=== PATIENT | female | born 1990 | race Caucasian/White ===

== ENCOUNTER 2020-01-03 09:20 | Emergency (ER) | payer OTHER ==
[2020-01-03 09:26] VITALS: BP 123/77; PULSE 74; TEMP 98.2; BMI 31.3
--- NOTE | 2020-01-03 09:48 | PDOC ---
History of Present Illness - General Chief Complaint: Injury Stated Complaint: LEFT FOOT PAIN Time Seen by Provider: 01/03/20 09:41 History Source: Patient Exam Limitations: Clinical Condition - History of Present Illness Initial Comments: 01/03/20 09:53 Patient with no significant past medical history present with complaint of redness and pain to toenail of left little toe status post repeat nailbed to nail which was hanging 5 days ago and now having pain and redness to the toe. Denies any fever, chills, malaise. Patient report increased pain to left little toe radiating to the lateral side of the left foot up the leg with ambulation. Denies any redness or streaking up the leg. Patient has not taken anything for symptoms Is this a multiple visit Asthma Patient?: No Timing/Duration: other (4 days) Past History - Medical History Allergies/Adverse Reactions: Allergies Allergy/AdvReac Type Severity Reaction Status Date / Time ampicillin sodium Allergy Verified 01/03/20 09:22 [From Unasyn] naproxen sodium [From Aleve] Allergy Hives Verified 01/03/20 09:22 piperacillin sodium Allergy Verified 01/03/20 09:22 [From Zosyn] sulbactam sodium Allergy Verified 01/03/20 09:22 [From Unasyn] tazobactam sodium Allergy Verified 01/03/20 09:22 [From Zosyn] Home Medications: Ambulatory Orders Ondansetron HCl [Zofran] 4 mg PO Q8H #12 tablet 07/27/15 Sulfamethoxazole/Trimethoprim [Bactrim Ds -] 1 tab PO BID #14 tablet 01/03/20 Asthma: No Cancer: No Cardiac Disorders: No COPD: No Diabetes: No HTN: No Seizures: No Thyroid Disease: No - Surgical History Appendectomy: Yes - Reproductive History Is Patient Now?: No Cervical CA: No Dysfunctional Uterine Bleeding: No Ectopic : No Endometrial CA: No Polycystic Ovaries: No Tubal Ligation: No - Immunization History Immunization Up to Date: Yes - Psycho-Social/Smoking History Smoking History: Never smoked Have you smoked in the past 12 months: No - Substance Abuse Hx (Audit-C & DAST Scrn) How often the patient has a drink containing alcohol: Monthly or less Number of drinks the patient has on a typical day: 1 or 2 How often the patient has six or more drinks on one occasion: Never Score: In Men: 4 or > Positive; In Women: 3 or > Positive: 1 Screen Result (Pos requires Nsg. Audit-10AR): Negative In the last yr the pt used illegal drug/Rx for NonMed reason: No Score: Yes response is considered Positive: 0 Screen Result (Positive result requires Nsg. DAST-10): Negative Review of Systems - Review of Systems Able to Perform ROS?: Yes Is the patient limited Upper Sorbian proficient: No Constitutional: No: Chills, Fever, Malaise HEENTM: No: Symptoms Reported Respiratory: No: Symptoms reported, See HPI, Cough, Orthopnea, Shortness of Breath, SOB with Exertion, SOB at Rest, Stridor, Wheezing, Productive cough, Hemoptysis, Other Cardiac (ROS): No: Symptoms Reported, See HPI, Chest Pain, Edema, Irregular Heart Rate, Lightheadedness, Palpitations, Syncope, Chest Tightness, Other ABD/GI: No: Symptoms Reported, Nausea, Vomiting Musculoskeletal: Yes: Symptoms Reported, See HPI, Muscle Pain (left little toe pain) Integumentary: Yes: Symptoms Reported, See HPI, Erythema (left little toe) Neurological: No: Symptoms reported All Other Systems: Reviewed and Negative *Physical Exam - Vital Signs Last Vital Signs Temp Pulse Resp BP Pulse Ox 98.2 F 74 18 123/77 100 01/03/20 09:23 01/03/20 09:23 01/03/20 09:23 01/03/20 09:23 01/03/20 09:23 - Physical Exam 01/03/20 09:55 GENERAL: Well developed, well nourished. Awake and alert. No acute distress. PULMONARY: No evidence of respiratory distress. MUSCULOSKELETAL : moderate erythema to nailbed of left little toe with mild tenderness to nailbed of left little toe. No toenail avulsion. No tenderness to rest of the foot or leg. No skin erythema to rest of foot or up the leg. No streaking erythema up the foot SKIN: Warm and dry. Normal capillary refill. Moderate erythema to nailbed of left little toe NEUROLOGICAL: Alert, awake, appropriate. No motor deficits in the lower extremities. Gait is normal without ataxia. PSYCHIATRIC: Cooperative. Good eye contact. Appropriate mood and affect. General Appearance: Yes: Nourished, Appropriately Dressed. No: Apparent Distress Medical Decision Making - Medical Decision Making 01/03/20 09:54 Patient with no significant past medical history present with complaint of redness and pain to toenail of left little toe status post repeat nailbed to nail which was hanging 5 days ago and now having pain and redness to the toe. Denies any fever, chills, malaise. Patient report increased pain to left little toe radiating to the lateral side of the left foot up the leg with ambulation. Denies any redness or streaking up the leg. Patient has not taken anything for symptoms Exam significant for moderate erythema to nailbed of left little toe with mild tenderness to nailbed of left little toe. No toenail avulsion. No tenderness to rest of the foot or leg. No skin erythema to rest of foot or up the leg. No streaking erythema up the foot Patient symptoms likely paronychia and stable for discharge on Bactrim antibiotics due to penicillin allergies and Motrin as needed for pain due to NSAID allergies with podiatry follow-up. 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 Take prescribed antibiotics and finish it. Take Tylenol as needed for pain due to naproxen al lergy. Soak foot in Epsom salt warm water as needed for swelling. Follow-up referred replanting machine operator - Post Discharge Activity Work/Back to School Note: Back to Work
--- OUTSIDE RECORDS SUMMARY | 2020-01-03 10:03 | XMS ---
:1990 Author Organization [facility] Support Name Relationship Address Phone UE Unavailable Unavailable Unavailable PAUL MALIN MOTHER [address] [phone] [place] [address] PAUL MALIN Unavailable [address] [place] [address] Re-disclosure Warning The records that you are about to access may contain information from federally- assisted alcohol or drug abuse programs. If such information is present, then the following federally mandated warning applies: This information has been disclosed to you from records protected by federal confidentiality rules (42 CFR part 2). The federal rules prohibit you from making any further disclosure of this information unless further disclosure is expressly permitted by the written consent of the person to whom it pertains or as otherwise permitted by 42 CFR part 2. A general authorization for the release of medical or other information is NOT sufficient for this purpose. The Federal rules restrict any use of the information to criminally investigate or prosecute any alcohol or drug abuse patient.The records that you are about to access may contain highly sensitive health information, the redisclosure of which is protected by Article 27-F of the [facility] Public Health law. If you continue you may haveaccess to information: Regarding HIV / AIDS; Provided by facilities licensed or operated by the [facility] Office of Mental Health; or Provided by the [facility] Office for People With Developmental Disabilities. If such information is present, then the following [facility] mandated warning applies: This information has been disclosed to you from confidential records which are protected by state law. State law prohibits you from making any further disclosure of this information without the specific written consent of the person to whom it pertains, or as otherwise permitted by law. Any unauthorized further disclosure in violation of state law may result in a fine or residential sentence or both. A general authorization for the release of medical or other information is NOT sufficient authorization for further disclosure. Allergies and Adverse Reactions Type Description Substance Reaction Status Data Source(s ) Drug allergy Unasyn Ampicillin / Sulbactam rash Active eCW3 ([facility]) Drug allergy Zosyn Piperacillin / hives Active eCW3 ([facility]) Drug allergy Aleve Naproxen hives Active eCW3 ([facility]) Drug allergy Unasyn Ampicillin / Sulbactam rash Active eCW3 ([facility]) Drug allergy Zosyn Piperacillin / hives Active eCW3 ([facility]) Encounters Encounter Providers Location Date Indications Data Source(s ) Outpatient [facility] 10/18/2018 eCW3 ([facility] A28 12:00:00 AM Health Care) EDT - 10/18/2018 12:00:[address] [facility] 07/03/2018 eCW3 ([facility] A28 12:00:00 AM Health Care) EDT - 07/03/2018 12:00:00 AM EDT Medications Medication Brand Start Product Dose Route Administrative Pharmacy [facility] Indications Reaction Description Data Name Date Form Instructions Instructions Source(s) Ketotifen Ketoti .0 active Ketotifen eCW3 0.25 MG/ML fen 2019 {drop Fumarate ([facility] Ophthalmic Fumara 12:00: _into 0.025 % R iver Solution te 00 AM _affe [facility] Ketotifen 0.025 EST cted_ Care) Fumarate % eye} 0.025 % 12 HR Cetiri .0 active Cetirizine-P eCW3 cetirizine zine-P 2019 {tabl seudoephedr i ([place] hydrochlori seudoe 12:00: et_as ne ER 5- 120 [place] de 5 MG / phedri 00 AM _need MG Health Pseudoephed ne ER EST ed} Care) rine 5-120 Hydrochlori MG de 120 MG Extended Release Oral Tablet Cetirizine- Pseudoephed rine ER 5-120 MG Azelastine Azelas 02/16/ end Azelast ine eCW3 HCl 0.15 % abdiel 2018 ed HCl 0.15 % ( dson HCl 12:00: [place] 0.15 % 00 AM Health EST Care) Azelastine Azelas 1.0 suspend Azelast ine eCW3 HCl 0.1 % abdiel 2019 {puff ed HCl 0.1 % ([place] HCl 12:00: _in_e [place] 0.1 % 00 AM ach_n Health EST ostri Care) l} Azithromyci Azithr 07/03/ 2.0 suspend Azithr omycin eCW3 n 500 MG omycin 2019 {tabl ed 500 MG ([place] 500 MG 12:00: et} [place] 00 AM Health EDT Care) Azithromyci Azithr 07/03/ 2.0 suspend Azithr omycin eCW3 n 500 MG omycin 2019 {tabl ed 500 MG ([place] Oral Tablet 500 MG 12:00: et} [place] r 00 AM Health EDT Care) Ceftriaxone Ceftri 07/03/ active Ceftria xone eCW3 250 MG axone 2018 Sodium 250 ([place] Injection Sodium 12:00: MG [place] Ceftriaxone 250 MG 00 AM Healt h Sodium 250 EDT Care) MG Prenat 11/07/ suspend eCW3 Vitamins al 2015 ed Vitamins ([place] 28-0.8 MG Vitami 12:00: 28-0.8 MG R iver ns 00 AM Health 28-0.8 EDT Care) MG Prenat 11/07/ suspend eCW3 Vitamins al 2015 ed Vitamins ([place] 28-0.8 MG Vitami 12:00: 28-0.8 MG R iver ns 00 AM Health 28-0.8 EDT Care) MG UNK 08/09/ suspend eC W3 Vitamins 2015 ed Vitamins ([place] 12:00: [place] 00 AM Health EDT Care) UNK 08/09/ suspend eC W3 Vitamins 2015 ed Vitamins ([place] 12:00: [place] 00 AM Health EDT Care) Ibuprofen Ibupro 1.0 active Ibuprofen e CW3 800 MG Oral fen {tabl 800 MG ([place] Tablet 800 MG et} [facility]) Levonorgest Mirena active Mirena (5 2 eCW3 rel (52 MG) 20 ([place] 0.391297 MG) 20 MCG/24HR [place] MG/HR Drug MCG/24 Health Implant HR Care) [Mirena] Mirena (52 MG) 20 MCG/24HR Levonorgest Mirena active Mirena (5 2 eCW3 rel (52 MG) 20 ([place] 0.638464 MG) 20 MCG/24HR [place] MG/HR Drug MCG/24 Health Implant HR Care) [Mirena] Mirena (52 MG) 20 MCG/24HR Ibuprofen Ibupro 1.0 suspend Ibuprofen eCW3 800 MG Oral fen {tabl ed 800 MG ([place] Tablet 800 MG et} [facility]) Clindamycin Clinda 1.0 suspend Clindamy brian eCW3 300 MG Oral mycin {caps ed HCl 300 MG ([place] Capsule HCl ule} [place] Clindamycin 300 MG Health HCl 300 MG Care) Clindamycin Clinda 1.0 suspend Clindamy brian eCW3 300 MG Oral mycin {caps ed HCl 300 MG ([place] Capsule HCl ule} [place] Clindamycin 300 MG Health HCl 300 MG Care) Insurance Providers Payer name Policy type Policy ID Covered Covered libertarian's Policy P rosalind / Coverage libertarian ID relationship to [place] Inf ormation type [place] P MEDICAID [id number] O Problems, Conditions, and Diagnoses Code Display Name Description Problem Type Effective Dates Data Source(s) J30.9 Allergic rhinitis, Allergic rhinitis, Problem 0 eCW3 ([place] unspecified unspecified 12:00:00 AM [facility]) N92.0 Spotting Spotting Problem 10/18/2018 eCW3 ([place] 12:00:00 AM [facility]) N92.0 Spotting Spotting Problem 10/18/2018 eCW3 ([place] 12:00:00 AM [facility]) Z97.5 IUD (intrauterine IUD (intrauterine Problem 07/03/2018 eCW3 ([place] device) in place device) in place 12:00:00 AM E [facility]) Z97.5 IUD (intrauterine IUD (intrauterine Problem 07/03/2018 eCW3 ([place] device) in place device) in place 12:00:00 AM E [facility]) E66.3 Overweight Overweight Problem 02/13/2018 eCW3 ([place] 12:00:00 AM [facility]) Surgeries/Procedures Procedure Description Date Indications Data Source(s) Administration of 07/03/2018 eCW3 ([facility] on [place] Medication 12:00:00 AM [facility]) Social History Code Duration Value Status Description Data Source(s ) Smoking 05/09/2019 Former Smoker completed Former Smoker eCW3 ( dson 12:00:00 AM [facility]) Smoking 2018 Former Smoker completed Former Smoker eCW3 ([place] 12:00:00 AM [facility]) Former Smoker completed Former Smoker eCW3 ([facility]) Smoking Unknown if ever completed Unknown if ever [facility]olfo [facility] Former Smoker completed Former Smoker eCW3 ([facility]) Vital Signs ID Date Data Source UNK Name Value Range Interpretation Code Description Data Source(s) Diastolic blood 87 mm[Hg] 87 mm[Hg] eCW3 ([facility]) Systolic blood 120 mm[Hg] 120 mm[Hg] eCW3 ([facility]) Body temperature 98.1 [degF] 98.1 [degF] eCW3 ( [facility]) Heart rate 20 /min 20 /min eCW3 ([facility]) Body mass index 31.50 kg/m2 31.50 kg/m2 eCW3 ([place] (BMI) [Ratio] [facility]) Body weight 156 [lb_av] 156 [lb_av] eCW3 ([facility]) Body height 59 [in_i] 59 [in_i] eCW3 ([facility]) Diastolic blood 87 mm[Hg] 87 mm[Hg] eCW3 ([facility]) Systolic blood 125 mm[Hg] 125 mm[Hg] eCW3 ([facility]) Body temperature 97.8 [degF] 97.8 [degF] eCW3 ( [facility]) Body mass index 28.68 kg/m2 28.68 kg/m2 eCW3 ([place] (BMI) [Ratio] [facility]) Body weight 142 [lb_av] 142 [lb_av] eCW3 ([facility]) Body height 59 [in_i] 59 [in_i] eCW3 ([facility]) Patient Treatment Plan of Care Planned Activity Planned Date Details Description Data Source (s) Ketotifen 0.25 MG/ML 05/04/2019 eCW3 ([place] Ophthalmic Solution 12:00:00 AM [facility]) 12 HR cetirizine 05/04/2019 eCW3 ([facility] hydrochloride 5 MG / 12:00:00 AM [facility]) Pseudoephedrine Hydrochloride 120 MG Extended Release Oral Tablet
== END 2020-01-03 09:53 | disposition home or self-care (01) ==
LOC: JER 09:20
DX: L03.032 Cellulitis of left toe (principal)
CPT/HCPCS: 99282-25

== ENCOUNTER 2020-01-04 15:10 | Emergency (ER) | payer OTHER ==
[2020-01-04 15:29] VITALS: BP 129/85; PULSE 68; TEMP 98.2; BMI 33.6
--- NOTE | 2020-01-04 15:56 | PDOC ---
History of Present Illness - General Chief Complaint: Wound Stated Complaint: LT FOOT FINGER INFECTION Time Seen by Provider: 01/04/20 15:31 History Source: Patient Exam Limitations: No Limitations - History of Present Illness Initial Comments: 01/04/20 15:59 Patient is a 29-year-old female with no past medical history who presents to the ED for follow-up of a left pinky toe infection that she was concerned about. She was seen yesterday and started on Bactrim for possible toe infection. She states a few days prior she pulled her toenail out as there was a snag. She states she pulled on the snag and the whole toenail fell out. She states overnight she began to have severe toe pain and noticed a blister on the toe. To return to the emergency department today for further evaluation and treatment. She denies any fevers or chills. She denies any new injury. Past History - Medical History Allergies/Adverse Reactions: Allergies Allergy/AdvReac Type Severity Reaction Status Date / Time ampicillin sodium Allergy Verified 01/03/20 09:22 [From Unasyn] naproxen sodium [From Aleve] Allergy Hives Verified 01/03/20 09:22 piperacillin sodium Allergy Verified 01/03/20 09:22 [From Zosyn] sulbactam sodium Allergy Verified 01/03/20 09:22 [From Unasyn] tazobactam sodium Allergy Verified 01/03/20 09:22 [From Zosyn] Home Medications: Ambulatory Orders Ondansetron HCl [Zofran] 4 mg PO Q8H #12 tablet 07/27/15 Sulfamethoxazole/Trimethoprim [Bactrim Ds -] 1 tab PO BID #14 tablet 01/03/20 Asthma: No Cancer: No Cardiac Disorders: No COPD: No Diabetes: No HTN: No Seizures: No Thyroid Disease: No - Surgical History Appendectomy: Yes - Reproductive History Is Patient Now?: No Cervical CA: No Dysfunctional Uterine Bleeding: No Ectopic : No Endometrial CA: No Polycystic Ovaries: No Tubal Ligation: No - Immunization History Immunization Up to Date: Yes - Psycho-Social/Smoking History Smoking History: Never smoked Have you smoked in the past 12 months: No - Substance Abuse Hx (Audit-C & DAST Scrn) How often the patient has a drink containing alcohol: Never Score: In Men: 4 or > Positive; In Women: 3 or > Positive: 0 Screen Result (Pos requires Nsg. Audit-10AR): Negative In the last yr the pt used illegal drug/Rx for NonMed reason: No Score: Yes response is considered Positive: 0 Screen Result (Positive result requires Nsg. DAST-10): Negative Review of Systems - Review of Systems Comments:: 01/04/20 16:00 - Review of Systems Able to Perform ROS?: Yes Constitutional: No: Fever, Chills, Loss of Appetite, Night Sweats, Weakness HEENTM: No: Eye Pain, Vision changes, Ear Pain, Throat Pain, Throat Swelling, Mouth Pain, Difficulty Swallowing Respiratory: No: Cough, Shortness of Breath, Wheezing, Sputum Production Cardiac (ROS): No: Chest Pain, Chest Tightness, Palpitations, Irregular Heart Beat, Edema ABD/GI: No: Nausea, Vomiting, Abdominal Pain, Diarrhea : No Dysuria, No Hematuria, No Frequency, No Urgency Musculoskeletal: No: Muscle Pain, Back Pain, Joint Pain, Muscle Weakness, Neck Pain Integumentary: No: Lesions, Rash; positive: Left pinky toe infection Neurological: No: Headache, Numbness, Tingling, Weakness, Speech Difficulties *Physical Exam - Vital Signs Last Vital Signs Temp Pulse Resp BP Pulse Ox 98.2 F 68 16 129/85 10 L 01/04/20 15:26 01/04/20 15:26 01/04/20 15:26 01/04/20 15:26 01/04/20 15:26 - Physical Exam 01/04/20 16:00 - Physical Exam General Appearance: Nourished, Appropriately Dressed, No Distress HEENT: EOMI, Normal Voice, Hearing Grossly Normal Neck: Supple, No Lymphadenopathy (R), No Lymphadenopathy (L), No Rigidity, No Decreased range of motion Respiratory/Chest: Lungs Clear, Normal Breath Sounds. No Respiratory Distress, No Accessory Muscle Use Cardiovascular: Regular Rhythm, Regular Rate, S1, S2 Musculoskeletal: Normal Inspection. No Decreased Range of Motion Extremity: Normal Capillary Refill, Normal Inspection Integumentary: Normal Color, Dry. No Rash; left fifth toe with large abscess appreciated just proximal to the nail matrix. No nail appreciated. No active drainage. No crepitus. No surrounding erythema. No red streaking. DP and PT pulses intact. Patient able to move all toes freely. Sensation intact distally. 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 Plan: -I&D performed without complication, no packing used -Patient is already on Bactrim, she should continue the Bactrim until the course is completed -Patient to follow-up with her primary care doctor within 1 to 2 days for repeat evaluation -She understands and agrees with this treatment plan and she is stable for discharge. Discharge - Discharge Information Problems reviewed: Yes Clinical Impression/Diagnosis: Abscess of fifth toe, left Condition: Stable Disposition: HOME - Follow up/Referral - Patient Discharge Instructions Patient Printed Discharge Instructions: DI for Incision and Drainage of a Skin Abscess Additional Instructions: Keep the wound clean and dry. Do warm water soaks twice daily to help resolve the infection. Follow-up with your primary doctor within 1 to 2 days for repeat evaluation. Be sure to return to the emergency department for any increased redness, increased pain, increased pus from the wound, red streaking, high fever s, shaking chills or any other worsening symptoms. - Post Discharge Activity Work/Back to School Note: Back to Work
--- OUTSIDE RECORDS SUMMARY | 2020-01-04 16:01 | XMS ---
:1990 Author Organization [facility] Support Name Relationship Address Phone YOBE Unavailable [address] [place] [address] UE Unavailable Unavailable Unavailable PAUL MALIN MOTHER [address] [phone] [place] [address] PAUL MALIN Mother [address] [place] [address] Re-disclosure Warning The records that you are [...] is protected by Article 27-F of the [facility] Public Health law. If you continue you may haveaccess to information: Regarding HIV / AIDS; Provided by facilities licensed or operated by the [facility] Office of Mental Health; or Provided by the [facility] Office for People With Developmental Disabilities. If such information is present, then the following [facility] mandated warning applies: This information has been [...] law may result in a fine or penitentiary sentence or both. A general authorization for the release of medical or other information is NOT sufficient authorization for further disclosure. Allergies and Adverse Reactions Type Description Substance Reaction Status Data Source(s ) Drug allergy Unasyn Ampicillin / Sulbactam rash Active eCW3 ([facility]) Drug allergy Zosyn Piperacillin / hives Active eCW3 ([facility]) Drug allergy Aleve Naproxen hives Active eCW3 ([facility]) Drug allergy Unasyn Ampicillin / Sulbactam rash Active eCW3 ([facility]) Drug allergy Zosyn Piperacillin / hives Active eCW3 ([facility]) Encounters Encounter Providers Location Date Indications Data Source(s ) Outpatient [facility] 10/18/2018 eCW3 ([facility] A28 12:00:00 AM [facility]) EDT - 10/18/2018 12:00:00 AM EDT Outpatient [facility] 07/03/2018 eCW3 ([facility] A28 12:00:00 AM [facility]) EDT - 07/03/2018 12:00:00 AM EDT Medications Medication Brand Start Product Dose Route Administrative Pharmacy [facility] Indications Reaction Description Data Name Date Form Instructions Instructions Source(s) Ketotifen Ketoti .0 active Ketotifen eCW3 0.25 MG/ML fen 2020 {drop Fumarate ([facility] Ophthalmic Fumara 12:00: _into 0.025 % R iver Solution te 00 AM _[facility] Ketotifen 0.025 EST cted_ Care) Fumarate % eye} 0.025 % 12 HR Cetiri .0 active Cetirizine-P eCW3 cetirizine zine-P 2020 {tabl seudoephedr i ([place] hydrochlori seudoe 12:00: et_as ne ER 5- 120 [place] de 5 MG / phedri 00 AM _need MG Health Pseudoephed ne ER EST ed} Care) rine 5-120 Hydrochlori MG de 120 MG Extended Release Oral Tablet Cetirizine- Pseudoephed rine ER 5-120 MG Azelastine Azelas 02/16/ suspend Azelast ine eCW3 HCl 0.15 % abdiel 2019 ed HCl 0.15 % (Hu dson HCl 12:00: [place] 0.15 % 00 AM Health EST Care) Azelastine Azelas 1.0 suspend Azelast ine eCW3 HCl 0.1 % abdiel 2019 {puff ed HCl 0.1 % ([facility] son HCl 12:00: _in_e [place] 0.1 % 00 AM ach_n Health EST ostri Care) l} Azithromyci Azithr 2.0 suspend Azithr omycin eCW3 n 500 [...] MG Prenat 11/07/ suspend eCW3 Vitamins al 2014 ed Vitamins ([place] 28-0.8 MG Vitami 12:00: 28-0.8 MG R iver ns 00 AM Health 28-0.8 EDT Care) MG Prenat 11/07/ suspend eCW3 Vitamins al 2015 ed Vitamins ([place] 28-0.8 MG Vitami 12:00: 28-0.8 MG R iver ns 00 AM Health 28-0.8 EDT Care) MG UNK 08/09/ suspend eC W3 Vitamins 2014 ed Vitamins ([place] 12:00: [place] 00 AM Health EDT Care) UNK 08/09/ suspend eC W3 Vitamins 2015 ed Vitamins ([place] 12:00: [place] 00 AM Health EDT Care) Ibuprofen Ibupro 1.0 active Ibuprofen e CW3 800 MG Oral fen {tabl 800 MG ([place] Tablet 800 MG et} [facility] Care) Levonorgest Mirena active Mirena (5 2 eCW3 rel (52 MG) 20 ([place] 0.500544 MG) 20 MCG/24HR [place] MG/HR Drug MCG/24 Health Implant HR Care) [Mirena] Mirena (52 MG) 20 MCG/24HR Levonorgest Mirena active Mirena (5 2 eCW3 rel (52 MG) 20 ([place] 0.392620 MG) 20 MCG/24HR [place] MG/HR Drug MCG/24 Health Implant HR Care) [Mirena] Mirena (52 MG) 20 MCG/24HR Ibuprofen Ibupro 1.0 suspend Ibuprofen eCW3 800 MG Oral fen {tabl ed 800 MG ([place] Tablet 800 MG et} [facility]) Clindamycin Clinda 1.0 suspend Clindamy brian eCW3 [...] name Policy type Policy ID Covered Covered alliance party's Policy P rosalind / Coverage alliance party ID relationship to Neville Inf ormation type neville [facility] MEDICAID [id number] HMO Problems, Conditions, and Diagnoses Code Display Name Description Problem Type Effective Dates Data Source(s) J30.9 Allergic rhinitis, Allergic rhinitis, Problem 0 eCW3 ([place] unspecified unspecified 12:00:00 AM [facility]) N92.0 Spotting Spotting Problem 10/18/2018 eCW3 ([place] 12:00:00 AM [facility]) N92.0 Spotting Spotting Problem 10/18/2018 eCW3 ([place] 12:00:00 AM [facility]) Z97.5 IUD (intrauterine IUD (intrauterine Problem 07/03/2018 eCW3 ([place] device) in place device) in place 12:00:00 AM [facility]) Z97.5 IUD (intrauterine IUD (intrauterine Problem 07/03/2018 eCW3 ([place] device) in place device) in place 12:00:00 AM [facility]) E66.3 Overweight Overweight Problem 02/13/2018 eCW3 ([place] 12:00:00 AM [facility]) Surgeries/Procedures Procedure Description Date Indications Data Source(s) Administration of 07/03/2018 eCW3 ([facility] Medication 12:00:00 AM [facility]) Social History Code Duration Value Status Description Data Source(s ) Smoking 05/09/2019 Former Smoker completed Former Smoker eCW3 ( dson 12:00:00 AM [facility]) Smoking 2018 Former Smoker completed Former Smoker eCW3 ( [facility]son 12:00:00 AM [facility]) Former Smoker completed Former Smoker eCW3 ([facility]) Smoking Unknown if ever completed Unknown if ever [facility]olfo [facility] Former Smoker completed Former Smoker eCW3 ([facility]) Vital Signs ID Date Data Source UNK Name Value Range Interpretation Code Description Data Source(s) Diastolic blood 87 mm[Hg] 87 mm[Hg] eCW3 ([facility]) Systolic blood 120 mm[Hg] 120 mm[Hg] eCW3 ([facility]) Body temperature 98.1 [degF] 98.1 [degF] eCW3 ( [facility]) Heart rate 20 /min 20 /min eCW3 ([facility]) Body mass index 31.50 kg/m2 31.50 kg/m2 eCW3 ([facility] (BMI) [Ratio] [facility]) Body weight 156 [lb_av] 156 [lb_av] eCW3 ([facility]) Body height 59 [in_i] 59 [in_i] eCW3 ([facility]) Diastolic blood 87 mm[Hg] 87 mm[Hg] eCW3 ([facility]) Systolic blood 125 mm[Hg] 125 mm[Hg] eCW3 ([facility]) Body temperature 97.8 [degF] 97.8 [degF] eCW3 ( [facility]) Body mass index 28.68 kg/m2 28.68 kg/m2 eCW3 ([facility] (BMI) [Ratio] [facility]) Body weight 142 [lb_av] 142 [lb_av] eCW3 ([facility]) Body height 59 [in_i] 59 [in_i] eCW3 ([facility]) Patient Treatment Plan of Care Planned Activity Planned Date Details Description Data Source (s) Ketotifen 0.25 MG/ML 05/04/2019 eCW3 ( [facility] 12:00:00 AM [facility]) 12 HR cetirizine 05/04/2019 eCW3 ([facility] hydrochloride 5 MG / 12:00:00 AM [facility]) Pseudoephedrine Hydrochloride 120 MG Extended Release Oral Tablet
== END 2020-01-04 16:00 | disposition home or self-care (01) ==
LOC: JERFT 15:10
DX: L02.612 Cutaneous abscess of left foot (principal)
CPT/HCPCS: 99283-25

== ENCOUNTER 2022-02-01 04:21 | Day surgery (SDC) | payer OTHER ==
[2022-01-28 15:09] VITALS: BMI 32.3
[2022-02-01] MEDS ORDERED: ONDANSETRON 4 MG/2 ML VIAL IVPUSH PRN (11:05)
[2022-02-01] MEDS ORDERED: PROPOFOL 20 ML ONE (11:14)
[2022-02-01] MEDS ORDERED: MIDAZOLAM HCL 2 MG/2 ML SINGLE DOSE VIAL ONE (11:14)
[2022-02-01] MEDS ORDERED: DEXAMETHASONE SOD PHOSPHATE 4 MG/1 ML VIAL ONE (11:33)
[2022-02-01] MEDS ORDERED: ONDANSETRON 4 MG/2 ML VIAL ONE (11:33)
[2022-02-01 12:57] VITALS: RESP 18; TEMP 97.3
[2022-02-01 13:32] VITALS: BP 107/73; PULSE 66
== END 2022-02-01 13:30 | disposition home or self-care (01) ==
LOC: JASU-SURG 04:21
PROVIDERS: ATTEND Obstetrics & Gynecology
PROC: 0UC98ZZ Extirpation of Matter from Uterus, Via Natural or Artificial Opening Endoscopic (ICD-10-PCS; principal; 2022-02-01 11:00)
DX: T83.32XA Displacement of intrauterine contraceptive device, initial encounter (principal)
CPT/HCPCS: 88300-TC; 94760